=== PATIENT | female | born 1955 | race Caucasian/White ===

== ENCOUNTER 2023-02-08 09:30 | Outpatient (RCR) | payer MEDICARE, OTHER, SELFPAY ==
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
--- NOTE | 2023-01-15 10:05 | HP.PTREVAL_ITS ---
BRENDAN SPANGLER, It has been my pleasure to treat YULISA HENDRIX over the last 10 visits for L RTC repair, SLAP tear and biceps tenodesis. Please see the progress note below for an update on the physical therapy plan of care! Subjective: Pt. reports overall doing well. No major issues noted. Pt. is able to sleep without issues. No pain currently. Objective/Function: Pt. is overall doing very well. No major issues. PROM: flexion 173deg, abd 180deg, ER at 90deg 87deg, IR at 90deg 50deg. AROM: flexion 170deg, abd 170deg, functional ER C5, functional IR L1. MMT: L shoulder: felxion 4/5, abd 4-/5, ER 4/5, IR 5/5, ext 5/5. Pt. is ready to progress to phase III for her strengthening. I added some bands this date. She is to contin ue with working on these. Progress phase III as tolerated. Plan Plan: Progress phase III as tolerated. Add in end range flexion and ER stretching at 90deg of abd. Progress per protocol. Balance/Gait/Functional tests - Balance/Special Test Scores Quick DASH Score: 22.7250 Goals Goal 1:: LTG: Pt. to be I with HEP. Goal Time Frame: 4-6 Weeks Goal Progress: Progressing Goal 2:: LTG: Pt. to have symmetrical PROM of L shoulder compared to R shoulder. Goal Time Frame: 4-6 Weeks Goal Progress: Progressing Goal 3:: STG: pt. to sleep throughout the night without increase in symptoms. Goal Time Frame: 2-4 Weeks Goal Progress: Goal Met Goal 4:: LTG: Pt. to have increased strength of L shoulder to at least 4+/5 throughout allowing increased functional use of L shoulder. Goal Time Frame: 6-8 Weeks Goal Progress: Progressing Goal 5:: LTG: Pt. to complete all ADLs without limitations. Goal Time Frame: 6-8 Weeks Goal Progress: Progressing Anticipated Interventions Patient/Client Instruction: Educate patient on: Condition, Plan of Care, Risk Factors, Benefits of Fitness Program For the Purpose of:: To facilitate caregiver knowledge, To improve self management, To prevent re-injury, To improve ability to perform tasks related to life management, To improve tolerance to ADL's Therapeutic Exercise to Include: Strength training, Power training, Body mechanics, Postural training, Flexibilty training, Passive ROM, Active ROM, Scapular Strength/Stabilization For the Purpose of:: To decrease pain, To increase ROM, To improve nutrient delivery to tissue, To increase oxygenation perfusion, To improve muscle performance and motor function, To improve ability to perform ADL's, To increase tolerance to activity/condition/position, To improve performance and independence with ADL's, To decrease level of supervision to perform tasks Manual Therapy Techniques to Include: Mobilization, Functional dry needling, Soft tissue mobilization For the Purpose of:: To decrease pain, To decrease swelling/inflammation, To increase ROM, To decrease soft tissue restriction, To increase flexibility/ROM Cryotherapy (ice pack, ice massage): Yes Thermo therapy (hot pack): Yes For the Purpose of:: To decrease pain, To decrease swelling/inflammation, To increase ROM Please do not hesitate to contact me at [phone] by phone or if you have questions or concerns regarding this new plan of care! Sincerely, Marcelo Marquis DPT
--- NOTE | 2023-02-08 14:40 | HP.PTREVAL ---
BRENDAN SPANGLER, It has been my pleasure to treat YULISA HENDRIX over the last 13 visits for L RTC repair, SLAP tear and biceps tenodesis. Please see the progress note below for an update on the physical therapy plan of care! Subjective: Pt. reports no issues. Pt. reports being 95% better overall. No pain with sleeping or with work. Objective/Function: Pt. has close to full ROM without increase in symptoms. Slight tightness with end range ER at 90deg of abd and slight tightness with functional IR (T10). MMT: pt. is 4/5 throughout L shoulder with mild symptoms with shoulder ABD, no pain with rest. Pt. is overall doing very well. At this point in time I would like her to work on her strengthening exercises I and daily. She is to recheck back with PT in 3 weeks. Sooner if needed. Plan Plan: Progress phase III as tolerated. Pt. to complete phase III I at home. Focus on increased repetitions rather than heavy wt. Pt. consents. Balance/Gait/Functional tests - Balance/Special Test Scores Quick DASH Score: 9.0900 Goals Goal 1:: LTG: Pt. to be I with HEP. Goal Time Frame: 4-6 Weeks Goal Progress: Progressing Goal 2:: LTG: Pt. to have symmetrical PROM of L shoulder compared to R shoulder. Goal Time Frame: 4-6 Weeks Goal Progress: Progressing Goal 3:: STG: pt. to sleep throughout the night without increase in symptoms. Goal Time Frame: 2-4 Weeks Goal Progress: Goal Met Goal 4:: LTG: Pt. to have increased strength of L shoulder to at least 4+/5 throughout allowing increased functional use of L shoulder. Goal Time Frame: 6-8 Weeks Goal Progress: Progressing Goal 5:: LTG: Pt. to complete all ADLs without limitations. Goal Time Frame: 6-8 Weeks Goal Progress: Progressing Anticipated Interventions Patient/Client Instruction: Educate patient on: Condition, Plan of Care, Risk Factors, Benefits of Fitness Program For the Purpose of:: To facilitate caregiver knowledge, To improve self management, To prevent re-injury, To improve ability to perform tasks related to life management, To improve tolerance to ADL's Therapeutic Exercise to Include: Strength training, Power training, Body mechanics, Postural training, Flexibilty training, Passive ROM, Active ROM, Scapular Strength/Stabilization For the Purpose of:: To decrease pain, To increase ROM, To improve nutrient delivery to tissue, To increase oxygenation perfusion, To improve muscle performance and motor function, To improve ability to perform ADL's, To increase tolerance to activity/condition/position, To improve performance and independence with ADL's, To decrease level of supervision to perform tasks Manual Therapy Techniques to Include: Mobilization, Functional dry needling, Soft tissue mobilization For the Purpose of:: To decrease pain, To decrease swelling/inflammation, To increase ROM, To decrease soft tissue restriction, To increase flexibility/ROM Cryotherapy (ice pack, ice massage): Yes Thermo therapy (hot pack): Yes For the Purpose of:: To decrease pain, To decrease swelling/inflammation, To increase ROM Please do not hesitate to contact me at [phone] by phone or if you have questions or concerns regarding this new plan of care! Sincerely, Marcelo Marquis DPT
== END 2023-02-08 19:00 | disposition home or self-care (01) ==
LOC: PT 09:30
DX: M75.42 Impingement syndrome of left shoulder (principal); Z47.89 Encounter for other orthopedic aftercare
CPT/HCPCS: 97110; 97140; 97161; 97164

== ENCOUNTER → 2024-10-30 | Outpatient (CLI) | payer MEDICARE, OTHER, SELFPAY ==
[2024-10-30 15:03] LABS: Absolute Lymphocyte Count 1.59 X10^3/uL (0.83-4.51); Absolute Neutrophil Count 3.8 X10^3/uL (2.0-7.7); Basophil# 0.07 X10^3/uL; Basophil% 1.1 % (0-1); Eosinophils% 1.6 % (0-5); Hematocrit 43.6 % (37-47); Hemoglobin 14.3 g/dL (12.0-15.0); Lymphocyte # 1.59 X10^3/ul (0.83-4.51); Mean Corp Hgb Conc 32.8 g/dL (32-36); Mean Corpuscular Hgb 32.4 pg (27.0-32.0); Mean Corpuscular Volume 98.9 fL (81-99); Mean Platelet Vol. 9.5 fl (6.2-12.0); Monocyte% 8.2 % (0-10); NRBC Flagged by Analyzer 0 % (0-5); Neutrophil # 3.84 X10^3/uL (2.7-7.7); Neutrophil % 62.8 % (47-70); Platelet Count 268 K/mm3 (150-450); RBC Distribution Width CV 12.4 % (11.6-14.6); RBC Distribution Width SD 45.3 fl (35.1-43.9); Red Blood Count 4.41 M/mm3 (4.2-5.4); White Blood Count 6.1 K/mm3 (4.4-11.0)
[2024-10-30 17:15] LABS: Erythrocyte Sedimentation Rate 3 mm/hr (0-30)
[2024-10-30 19:24] LABS: CRP < 3.00 mg/L (0.0-3.0)
== END | disposition home or self-care (01) ==
PROVIDERS: PCP Internal Medicine; Referring Provider Internal Medicine; Visit Provider Internal Medicine
DX: R10.9 Unspecified abdominal pain (principal); R16.1 Splenomegaly, not elsewhere classified
CPT/HCPCS: 36415; 85025; 85652; 86140

== ENCOUNTER → 2024-11-05 | Outpatient (CLI) | payer MEDICARE, OTHER, SELFPAY ==
--- NOTE | 2024-11-05 12:40 | BD_ITS ---
PROCEDURE: DEXA BONE DENSITY STUDY 11/05/2024 REASON FOR EXAM: F, age 68 y/o . Postmenopausal. TECHNIQUE: DXA scan of the lumbar spine and both hips. REFERENCE LINKS: ISCD Adult Positions COMPARISON: None FINDINGS: Lumbar Spine (L1-L4): g/cm2 (0.857)/T-score (-1.7)/Z-score (0.3) findings are suggestive of osteopenia with a moderate fracture risk. Left Femur Total: g/cm2 (0.623)/T-score (-2.6)/Z-score (-1.2) Left Femoral Neck: g/cm2 (0.565)/T-score (-2.6)/Z-score (-0.8) Right Femur Total: g/cm2 (0.650)/T-score (-2.4)/Z-score (-1.0) Right Femoral Neck: g/cm2 (0.599)/T-score (-2.3)/Z-score (-0.5) BD/Dexa Bone Density Study IMPRESSION: The patient is considered osteoporotic as outlined below according to [employer] (WHO) criteria with a high fracture risk. Recommend follow-up as clinically warranted. Reading Location: [place] [id number]
--- NOTE | 2024-11-05 13:00 | BI_ITS ---
EXAM: SCRN MAMM (CAD)W/RACHEL BILAT 11/05/2024 CLINICAL HISTORY: F, Age 68 y/o , SCRN MAMM (CAD)W/RACHEL BILAT. No family history of breast cancer. TECHNIQUE: Bilateral screening digital breast tomosynthesis with 2D and 3D images. Computer aided detection. COMPARISON: Prior exam(s) dated 10/23/2019. FINDINGS: TISSUE DENSITY: The breast tissue is extremely dense which lowers the sensitivity of mammography. The mammogram demonstrates that the patient has dense breasts. Supplemental screening with whole breast ultrasound or MRI may be considered for further evaluation. Bilateral Breast Mammographic Findings: No significant masses, calcifications or other abnormalities are identified. BI/SCRN MAMM (CAD)W/RACHEL BILAT IMPRESSION: There is no mammographic evidence of malignancy. OVERALL FINAL ASSESSMENT: BIRADS 1 NEGATIVE. RECOMMENDATION: Routine annual follow-up in 1 Year A letter with findings and recommendations will be mailed to the patient. Reading Location: [id number]
== END | disposition home or self-care (01) ==
LOC: OPBD 12:39
PROVIDERS: PCP Internal Medicine; Referring Provider Internal Medicine; Visit Provider Internal Medicine
DX: Z12.31 Encounter for screening mammogram for malignant neoplasm of breast (principal); Z78.0 Asymptomatic menopausal state
CPT/HCPCS: 77063; 77067; 77080

== ENCOUNTER → 2024-11-11 | Outpatient (CLI) | payer MEDICARE, OTHER, SELFPAY ==
--- NOTE | 2024-11-11 07:51 | US_ITS ---
EXAM: Abdomen limited CLINICAL HISTORY: Splenomegaly COMPARISON: None available TECHNIQUE: Abdomen limited left upper quadrant FINDINGS: The visualized pancreas appears within limits. The spleen measures 8.3 x 3.1 x 3.5 cm and contains several small nonshadowing echogenic foci which likely represent calcified granulomas from previous sequela of granulomatous disease. The left kidney measures 9.7 x 4.6 x 3.7 cm with a cortical thickness of 1.1 cm. No hydronephrosis or perinephric edema identified. No free fluid seen. US/Abdomen Limited IMPRESSION: The spleen measures within limits at 8.3 x 3.1 x 3.5 cm and contains several sm all nonshadowing echogenic foci which likely represent calcified granulomas from previous sequela of granulomatous disease, appears incidental. No free fluid seen. Reading Location: [id number]
== END | disposition home or self-care (01) ==
LOC: OPUS 07:50
PROVIDERS: PCP Internal Medicine; Referring Provider Internal Medicine; Visit Provider Internal Medicine
DX: R16.1 Splenomegaly, not elsewhere classified (principal)
CPT/HCPCS: 76705

== ENCOUNTER 2024-11-16 05:11 | Day surgery (SDC) | payer MEDICARE, OTHER, SELFPAY ==
[2024-11-16] VITALS (8 sets, daily range): BP systolic 80–108; BP diastolic 48–66; PULSE 61–70; RESP 16; TEMP 36.3–36.8; O2SAT 97–99
--- NOTE | 2024-11-16 06:30 | COLBX_PTH ---
PATIENT: YULISA HENDRIX LOC: EN U#:[id number] AGE/SX: 68/F ROOM: RE11/16/[address]: Dr. Hasmukh Perkins DO : 1955 BED: DIS: 11/16/2024 SPEC #: [id number] RECD: 11/16/24 13:32 STATUS: HEIKE REArtie #: [id number] BETZAIDA: 11/16/24 06:[address]: Hasmukh Perkins DEPT: SURGICAL PATHOLOGY RECD BY: Robles Orozco ENTERED: 11/16/24 13:33 SP TYPE: COLON BX SADE DR: Dr. Elizabeth Martin DO Tissues: A - Transverse colon B - Cecum, NOS C - COLON BIOPSY D - Rectum, NOS Procedures: Surgery Specimen Level IV HEADER OPERATION: Colonoscopy with biopsy PRE-OP DIAGNOSIS: Rectal bleeding TISSUE SUBMITTED: A- Transverse colon polyp biopsy, B- Cecal polyp biopsy, C- Random colon biopsy, D- Rectum biopsy MICROSCOPIC DIAGNOSIS A. Transverse Colon, Polyp, Biopsy: * Tubular adenoma. B. Colon, Cecum, Polyp, Biopsy: * Superficial hyperplastic change (deeper sections examined). C. Colon, Random, Biopsy: * Melanosis coli. * Negative for microscopic colitis. D. Rectum, Bleeding, Biopsy: * Focal active colitis - see note. Note: The histologic differential diagnosis includes medication injury (eg: NSAIDs), infection, ischemia, and bowel prep artifact. Recommend correlation with clinical and endoscopic findings. MICROSCOPIC DESCRIPTION Slides are reviewed. GROSS DESCRIPTION A. Received in formalin in a container labeled with the patient's name, date of , and transverse colon polyp biopsy are 3 contreras-pink fragments of mucosal tissue ranging from 0.2 x 0.1 x 0.1 cm to 0.4 x 0.3 x 0.2 cm. Entirely submitted in A1. B. Received in formalin in a container labeled with the patient's name, date of , and cecal polyp biopsy is a 1.0 x 0.2 x 0.1 cm strip of contreras-pink mucosal tissue. Entirely submitted in B1. C. Received in formalin in a container labeled with the patient's name, date of , and Random colon biopsy are multiple contreras-pink fragments of soft tissue measuring 1.7 x 0.8 x 0.2 cm in aggregate. Entirely submitted in C1. D. Received in formalin in a container labeled with the patient's name, date of , and rectum biopsy are multiple contreras-pink fragments of soft tissue measuring 1.0 x 0.9 x 0.2 cm in aggregate. Entirely submitted in D1. B 11-16-2024 CPT:91208x6
--- NOTE | 2024-11-16 06:38 | PCM.HP.STD ---
HPI - General General Date of Admission: 11/16/24 Date of Service: 11/16/24 Chief Complaint: rectal bleeding HPI Narrative YULISA HENDRIX, is a 68 F who presents for the evaluation of lower gi bleeding - thinks she has a prolapsed rectum - intermittent rectal bleeding - usually BRB - reports franklin she strains with a BM she reports her bottom falls out and she has to push it back in - she reports this is not a hemorrhoid - occasional rectal pain - reports the prolapse rectum was present 3 years ago when she had colonoscopy but was not having bleeding at that time - states doctor told her post colonoscopy everything was fine - typically BM are formed and daily - constipation and diarrhea are intermittent - she is not taking any fiber supplements or probiotic - denies any heart or lung disease - denies any kidney disease - weight is stable [facility] Medical History Wears glasses Wears partial dentures Arthritis Non-smoker Heartburn Gastric reflux Normal colonoscopy Hypoglycemia Acne cystica Skin lesion Osteoarthritis Deformity of foot Osteoporosis COVID-19 Home Medications ?Medication ?Instructions ?Recorded ?Last Taken ?Type venlafaxine 75 mg capsule,extended 75 mg PO DAILY 05/27/23 Unknown History release 24 hr (Effexor XR) Balance of Fruits Daily 1 gummy PO BID 11/02/24 Unknown History Balance of Nature Beet Root 1 gummy PO DAILY 11/02/24 Unknown History Balance of Veggies Daytime 1 gummy PO BID 11/02/24 Unknown History Alejandra-Apple Cider Vinegar 2 gummy PO BID PRN indigestion 11/02/24 Unknown History spironolactone 50 mg tablet 25 mg PO BID 11/02/24 Unknown History hydrocortisone acetate 25 mg 25 mg WA QHS #7 ea 11/03/24 Unknown Rx rectal suppository (Anusol-HC) ondansetron HCl 4 mg tablet 4 mg PO .COMPLEX #5 tabs 11/03/24 Unknown Rx sodium,potassium,mag sulfates 17.5 See Rx Instructions PO .COMPLEX 11/03/24 Unknown Rx gram-3.13 gram-1.6 gram oral soln #354 mL (Suprep Bowel Prep Kit) Allergy/AdvReac Type Severity Reaction Status Date / Time No Known Allergies Allergy Verified 11/16/24 05:39 Family History Father Colon cancer Surgical History History of vulvectomy (~12/2020) History of cataract surgery History of rotator cuff surgery (~11/2022) Social History Smoking Status: Never smoker alcohol intake: never substance use type: does not use ROS Constitutional Constitutional: Denies fatigue, fever(s), poor appetite, weight gain or weight loss Gastrointestinal Gastrointestinal: Denies belching, bloating, change in bowel habits, change in stool character, chewing difficulty, coffee ground emesis, constipation, cramping, diarrhea, dyspepsia, dysphagia, early satiety, excessive flatus, fecal incontinence, heartburn, hematemesis, hematochezia, hemorrhoids, loose stools, melena, nausea, odynophagia, rectal bleeding, tenesmus, vomiting or weight changes Vital Signs Vital Signs Vital Signs: 11/16/24 05:40 11/16/24 05:40 Temperature 98.3 F Temperature Source Temporal Pulse Rate 66 Respiratory Rate 16 Respiratory Pattern Normal Blood Pressure 108/66 Blood Pressure Mean 80 Blood Pressure Source Monitor Blood Pressure Position Semi-Fowlers Blood Pressure Location Left Arm Pulse Ox 97 Oxygen Delivery Method Room Air Weight Weight: 120 lb 2.431 oz Body Mass Index (BMI) 20.0 Physical Exam Const alert, oriented x3, no apparent distress and healthy appearing General Appearance: cooperative GI normal to inspection, nondistended, normoactive bowel sounds, soft to palpation, non-tender and non-distended Percussion: normal to percussion Rectal Exam: deferred Assessment & Plan Assessment/Plan (1) Rectal bleeding: PLAN: Assessment and Plan Assessment and Plan (1) Rectal bleeding: Status: Acute Medications: New hydrocortisone acetate (Anusol-HC) 25 mg WA QHS 7 ea 0RF sodium,potassium,mag sulfates 17.5-3.13-1.6 gram (Suprep Bowel Prep Kit) take as directed for split dose bowel prep 354 mL 0RF ondansetron HCl 4 mg orally; take two tablets PO two hours prior to start of bowel prep and one every 4 hours as needed for N/V 5 tabs 0RF Plan 68y/o female presents for consultation with complaints of intermittent rectal bleeding. She reports one week ago she experienced gastroenteritis with N/V and diarrhea and experienced blood clots in stools. She reports several of her co-workers were also sick at the same time. Her last colonoscopy was unremarkable in 2020. Family history is significant for father with colon cancer at 82y/o. She complains of rectal prolapse with every bowel movement. She is able to reduce prolapse and reports rectal pain is minimal. I have scheduled her for a colonoscopy. She will trial a daily fiber supplement and probiotic. Pending findings and symptoms may schedule ARM. Patient Instructions: - Squatty Potty - FiberCon 2 tablets once daily with 8 ounces of water after a meal. May take up to 3 weeks for symptom improvement. - Start a probiotic (Align, Culturelle or Betterific) once daily. These are all multispecies probiotics, pick the cheapest one. - Avoid straining with a bowel movement - Colonoscopy - Suprep bowel prep Plan Details
--- NOTE | 2024-11-16 06:39 | PCM.PRE.AN2 ---
ASA Classification* ASA Classification ASA Classification: 2 Assessment & Plan Anesthesia* Anesthesia Assessment Anesthesia Assessment: Discussed sedation and/or anesthesia options, risks, benefits, and alternatives with patient/parents/legal guardian/POA. Questions invited. The patient/parents/legal guardian/POA seems to understand and agrees to proceed with anesthesia plan. Reviewed the physical assessment, medical history, allergy history and patient home medications list prior to surgery/procedure/anesthetic and documented any changes. Performed airway and anesthesia risk assessments. Anesthesia Type Anesthesia Type: MAC Anesthesia Focused Assessment* Temperature: 98.3 F Pulse Rate: 66 Blood Pressure: 108/66 Respiratory Rate: 16 Pulse Ox: 97 Airway Assessment Mouth opens: >3 cm Mallampati Score: II Focused Labs Anesthesia Preop lab: CBC WBC 6.1 K/mm3 (4.4-11.0) 10/30/24 13:00 10/30/24 RBC 4.41 M/mm3 (4.2-5.4) 10/30/24 13:00 10/30/24 Hgb 14.3 g/dL (12.0-15.0) 10/30/24 13:00 10/30/24 Hct 43.6 % (37-47) 10/30/24 13:00 10/30/24 Plt Count 268 K/mm3 (150-450) 10/30/24 13:00 10/30/24 CHEMISTRY COAG Pre-Assessment Diagnosis/Proposed Procedure Planned Operative Procedure(s): cscope Anesthesia History Anesthesia History - director of quality: Anesthesia History - director of quality Hx Hospitalization No 11/11/24 11:44 Any Problems With Anesthesia Yes: nausea 11/11/24 11:44 Cholinesterase deficiency No 11/11/24 11:44 You/Your Family Experience No 11/11/24 11:44 fever (hyperthermia) with Relationship Recent Exposure to Contagious No 11/16/24 05:40 Disease Does patient have nerve No 11/11/24 11:44 stimulator Patient instructed to have device shut off --Does patient have Pacemaker No 11/16/24 05:40 or ICD? When Was Last Pacemaker Check QUESTION #4 FULL TEXT: You/Your Family Experience fever (hyperthermia) with Anesthesia Last Oral Intake Last Oral intake: Last Oral Intake NPO since 23:00 11/16/24 05:40 Meds taken in AM with sips of No 11/16/24 05:40 water? Meds patient instructed to take am of surgery PONV PONV - director of quality: PONV - director of quality Female Yes 11/11/24 11:44 HX of Motion Sickness No 11/11/24 11:44 HX of N/V After Surgery Yes 11/11/24 11:44 Non-Smoker Yes 11/11/24 11:44 Duration of Surgery greater No 11/11/24 11:44 than 60 minutes Number of Risk Factors 3 11/11/24 11:44 PONV Score Moderate Risk 11/11/24 11:44 Height & Weight Height & Weight: Anesthesia: Height & Weight Height 5 ft 5 in 11/16/24 05:40 Weight: 54.5 kg 11/16/24 05:40 Body Mass Index (BMI) 20.0 11/16/24 05:40 Respiratory Assessment Respiratory Assessment - director of quality: Respiratory Tract Infection Hx - director of quality Hx Respiratory Tract Infection Yes: cold/head congestion 11/11/24 11:44 currently STOP Sleep Apnea STOP Sleep Apnea - director of quality: STOP Sleep Apnea - director of quality Hx Hypertension No 11/11/24 11:44 Hx Sleep Apnea No 11/11/24 11:44 CPAP BIPAP Do you snore loudly (louder No 11/11/24 11:44 than talking or can be heard Do you often feel tired/ No 11/11/24 11:44 fatigued/ sleepy during daytime? Has anyone observed you stop No 11/11/24 11:44 breathing during sleep? STOP Results Negative 11/11/24 11:44 QUESTION #5 FULL TEXT : Do you snore loudly (louder than talking or can be heard through closed doors)? 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 Specify any problems Hx of Preganancy in last 3 N/A 11/11/24 11:44 Months Nurse Filling Out Transfusion NBUCHER 11/11/24 11:44 & Questions: Date: 11/11/24 11/11/24 11:44 Time: 11:45 11/11/24 11:44 Patient unable to answer at this time (ie. confused, unrespo /Reproduction History /Reproductive History - director of quality: /Reproductive Hx- director of quality Hx Now No 11/11/24 11:44 Gestational Age (in weeks): EDC: Hx Hx Para Hx Section SAB No 11/11/24 11:44 [facility] Medical History Wears glasses Wears partial dentures Arthritis Non-smoker Heartburn Gastric reflux Normal colonoscopy Hypoglycemia Acne cystica Skin lesion Osteoarthritis Deformity of foot Osteoporosis COVID-19 Home Medications ?Medication ?Instructions ?Recorded ?Last Taken ?Type venlafaxine 75 mg capsule,extended 75 mg PO DAILY 05/27/23 Unknown History release 24 hr (Effexor XR) Balance of Fruits Daily 1 gummy PO BID 11/02/24 Unknown History Balance of Nature Beet Root 1 gummy PO DAILY 11/02/24 Unknown History Balance of Veggies Daytime 1 gummy PO BID 11/02/24 Unknown History Alejandra-Apple Cider Vinegar 2 gummy PO BID PRN indigestion 11/02/24 Unknown History spironolactone 50 mg tablet 25 mg PO BID 11/02/24 Unknown History hydrocortisone acetate 25 mg 25 mg CA QHS #7 ea 11/03/24 Unknown Rx rectal suppository (Anusol-HC) ondansetron HCl 4 mg tablet 4 mg PO .COMPLEX #5 tabs 11/03/24 Unknown Rx sodium,potassium,mag sulfates 17.5 See Rx Instructions PO .COMPLEX 11/03/24 Unknown Rx gram-3.13 gram-1.6 gram oral soln #354 mL (Suprep Bowel Prep Kit) Allergy/AdvReac Type Severity Reaction Status Date / Time No Known Allergies Allergy Verified 11/16/24 05:39 Family History Father Colon cancer Surgical History History of vulvectomy (~12/2020) History of cataract surgery History of rotator cuff surgery (~11/2022) Social History Smoking Status: Never smoker alcohol intake: never substance use type: does not use Review of Systems (Anesthesia) ROS Narrative System reviewed and no additional complaints, except as documented.
--- NOTE | 2024-11-16 07:20 | PCM.POST.ANE ---
Anesthesia: Postop Eval I Current Vital Signs Temperature: 97.4 F Pulse Rate: 70 Blood Pressure: 88/49 Respiratory Rate: 16 Pulse Ox: 97 Oxygen Delivery Method: Room Air Assessment Airway patent: Yes Spontaneous unlabored respirations: Yes Mental status: Awake and Calm nausea: No Vomiting: No Anesthesia Complication: No Fluid Hydration Crystalloid volume administer (ml): 50 Total IV fluid infused: 50 Progress Note Anesthesia document: Postop Eval 1 completed: Yes
--- NOTE | 2024-11-16 07:27 | OP.CCLET_ITS ---
11/16/2024 Elizabeth Martin [address] [place] [address] Re : Colonoscopy procedure for Cristalkasandra Paredes Dear Dr. Martin This procedure was performed on Saturday, November 16, 2024. My impressions and recommendations are as follows: Impressions : - Hemorrhoids found on perianal exam. - Localized moderate inflammation was found in the rectum secondary to proctitis. Biopsied. - Melanosis in the colon. Biopsied. - Two 5 mm polyps in the transverse colon and in the cecum, removed with a cold biopsy forceps. Resected and retrieved. - Stool in the sigmoid colon, in the descending colon, in the transverse colon and in the ascending colon. Recommendations : - Discharge patient to home. - Resume previous diet. - Continue present medications. - Await pathology results. - Repeat colonoscopy date to be determined after pending pathology results are reviewed for surveillance. My findings are described in the full procedure note, which is enclosed. If I can be of further assistance, please feel free to contact me at . Sincerely, Hasmukh Perkins DO 11/16/2024 7:26:06 AM This report has been signed electronically.
--- NOTE | 2024-11-16 07:27 | OP.COLON_ITS ---
Patient Name: Cristal Paredes Procedure Date: 11/16/2024 6:13 AM Date of : 1955 Age: 68 Procedure: Colonoscopy Indications: Hematochezia Providers: Hasmukh Perkins DO Referring MD: Elizabeth Martin Medicines: Monitored Anesthesia Care Patient Profile: This is a 68 year old female. Refer to note in patient chart for documentation of history and physical. Last Colonoscopy: 5 years ago. Complications: No immediate complications. Procedure: Pre-Anesthesia Assessment: - Prior to the procedure, a History and Physical was performed, and patient medications and allergies were reviewed. The patient is competent. The risks and benefits of the procedure and the sedation options and risks were discussed with the patient. All questions were answered and informed consent was obtained. Patient identification and proposed procedure were verified by the physician in the pre-procedure area. Mental Status Examination: alert and oriented. Airway Examination: normal oropharyngeal airway and neck mobility. Respiratory Examination: clear to auscultation. CV Examination: normal. ASA Grade Assessment: II - A patient with mild systemic disease. After reviewing the risks and benefits, the patient was deemed in satisfactory condition to undergo the procedure. The anesthesia plan was to use moderate sedation / analgesia (conscious sedation). Immediately prior to administration of medications, the patient was re-assessed for adequacy to receive sedatives. The heart rate, respiratory rate, oxygen saturations, blood pressure, adequacy of pulmonary ventilation, and response to care were monitored throughout the procedure. The physical status of the patient was re-assessed after the procedure. After I obtained informed consent, the scope was passed under direct vision. Throughout the procedure, the patient's blood pressure, pulse, and oxygen saturations were monitored continuously. The Colonoscope was introduced through the anus and advanced to the terminal ileum. The colonoscopy was performed without difficulty. The patient tolerated the procedure well. The quality of the bowel preparation was adequate. The ileocecal valve, appendiceal orifice, and rectum were photographed. Scope In: 6:49:25 AM Scope Withdrawal Time 0 hours 12 minutes 49 seconds Scope Out: 7:11:19 AM Total Procedure Duration Time 0 hours 21 minutes 54 seconds Findings: Hemorrhoids were found on perianal exam. Localized moderate inflammation characterized by erosions, erythema, friability and granularity was found in the rectum. Biopsies were taken with a cold forceps for histology. Verification of patient identification for the specimen was done. Estimated blood loss was minimal. A diffuse area of moderate melanosis was found in the entire colon. Biopsies were taken with a cold forceps for histology. Verification of patient identification for the specimen was done. Estimated blood loss was minimal. Two sessile polyps were found in the transverse colon and cecum. The polyps were 5 mm in size. These polyps were removed with a cold biopsy forceps. Resection and retrieval were complete. Verification of patient identification for the specimen was done. Estimated blood loss was minimal. Stool was found in the sigmoid colon, in the descending colon, in the transverse colon and in the ascending colon. Retroflexion was not performed due to inflammation in the rectum and mild prolapse. Impression: - Hemorrhoids found on perianal exam. - Localized moderate inflammation was found in the rectum secondary to proctitis. Biopsied. - Melanosis in the colon. Biopsied. - Two 5 mm polyps in the transverse colon and in the cecum, removed with a cold biopsy forceps. Resected and retrieved. - Stool in the sigmoid colon, in the descending colon, in the transverse colon and in the ascending colon. Recommendation: - Discharge patient to home. - Resume previous diet. - Continue present medications. - Await pathology results. - Repeat colonoscopy date to be determined after pending pathology results are reviewed for surveillance. Procedure Code(s): --- Professional --- 25010, Colonoscopy, flexible; with biopsy, single or multiple CPT copyright 2021 [employer]. All rights reserved. The codes documented in this report are preliminary and upon director of graduate admissions review may be revised to meet current compliance requirements. Hasmukh Perkins DO 11/16/2024 7:26:06 AM This report has been signed electronically. Number of Addenda: 0 Note Initiated On: 11/16/2024 6:13 AM
--- NOTE | 2024-11-16 08:30 | PCM.POSTANE2 ---
Anesthesia Postop Eval I Sum Postop Eval Completion status Anesthesia document: Postop Eval 1 completed: Yes Anesthesia Postop Eval I Summary Anesthesia Postop Eval I Summary: Anesthesia Postop Eval I: Assessment Summary Airway patent Yes 11/16/24 07:21 [email or web address] Spontaneous unlabored Yes 11/16/24 07:21 [email or web address] respirations Mental status Awake,Calm 11/16/24 07:21 [email or web address] nausea No 11/16/24 07:21 [email or web address] Vomiting No 11/16/24 07:21 [email or web address] Anesthesia Postop Eval I: Fluid Summary Crystalloid volume administer 50 11/16/24 07:21 [email or web address] (ml) Colloids volume administered ( ml) Blood Product volume administered (ml) Total IV fluid infused 50 11/16/24 07:21 [email or web address] Anesthesia Postop Eval I: Summary Notes Anesthesia Complication No 11/16/24 07:21 [email or web address] Anesthesia Complication Comment: Post-operative progress note Anesthesia: Postop Eval II Evaluation Mental status: Awake Pain Level: 0 nausea: No Vomiting: No
== END 2024-11-16 07:52 | disposition home or self-care (01) ==
LOC: EN 05:13 → AC 05:40
PROVIDERS: PCP Internal Medicine; Referring Provider Internal Medicine; Visit Provider Internal Medicine Gastroenterology
PROC: 0DJD8ZZ Inspection of Lower Intestinal Tract, Via Natural or Artificial Opening Endoscopic (ICD-10-PCS; CPT 45378; principal; 2024-11-16 06:25)
DX: K62.5 Hemorrhage of anus and rectum (principal); K64.9 Unspecified hemorrhoids; R19.7 Diarrhea, unspecified; K63.89 Other specified diseases of intestine; K63.5 Polyp of colon; K62.89 Other specified diseases of anus and rectum; Z86.16 Personal history of COVID-19; Z80.0 Family history of malignant neoplasm of digestive organs; K59.00 Constipation, unspecified
CPT/HCPCS: 45380; 88305; A4216; J2405